=== PATIENT | male | born 1940 | race Caucasian/White ===

== ENCOUNTER 2024-07-17 12:29 | Emergency (ER) | payer SELFPAY ==
[2024-07-17 12:40] VITALS: BP 154/72
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
[2024-07-17 17:35] VITALS: BP 142/76
== END 2024-07-17 17:36 | disposition home or self-care (01) ==
LOC: EMR 12:29
PROVIDERS: EMERGENCY PHYSICIAN Emergency Medicine; FAMILY PHYSICIAN Internal Medicine
DX: S43.401A Unspecified sprain of right shoulder joint, initial encounter (principal); V49.69XA Unspecified car occupant injured in collision with other motor vehicles in traffic accident, initial encounter; I10 Essential (primary) hypertension
CPT/HCPCS: 99284; 70450; 71046; 73030

== ENCOUNTER → 2025-02-01 13:20 | Outpatient (REF) | payer OTHER, SELFPAY | LOC: RAD 13:20 | PROVIDERS: ATTENDING PHYSICIAN Specialist; FAMILY PHYSICIAN Internal Medicine | DX: R79.89 Other specified abnormal findings of blood chemistry (principal) | CPT/HCPCS: 76770 ==